=== PATIENT | female | born 1985 | race Caucasian/White ===

== ENCOUNTER 2024-02-02 20:04 | Emergency (ER) | payer MEDICAID ==
[~2024-02-02] VITALS: Ht 162.6 cm; Wt 105.0 kg
[2024-02-02 20:10] VITALS: TEMP 98.7; O2SAT 98
[2024-02-02] MEDS ORDERED: LIDO700A15 TP (23:32)
[2024-02-02] MEDS ORDERED: NAPR-1176 MT (23:32)
[2024-02-02 23:43] VITALS: BP 132/80; PULSE 82; RESP 17
[2024-02-02] MEDS: KETOROLAC 15MG/ML VIAL IM ONE (23:43)
== END 2024-02-02 23:45 | disposition home or self-care (01) ==
LOC: ER 20:04
DX: M25.551 Pain in right hip (principal); M25.552 Pain in left hip; M25.572 Pain in left ankle and joints of left foot; J45.909 Unspecified asthma, uncomplicated; E78.00 Pure hypercholesterolemia, unspecified; I10 Essential (primary) hypertension; V49.49XA Driver injured in collision with other motor vehicles in traffic accident, initial encounter; Y93.89 Activity, other specified; Y92.89 Other specified places as the place of occurrence of the external cause; Y99.8 Other external cause status
CPT/HCPCS: 99284; 71045; 73521; 73610; 96372; J1885

== ENCOUNTER 2024-02-23 15:27 | Emergency (ER) | payer MEDICAID ==
[~2024-02-23] VITALS: Ht 167.6 cm; Wt 112.5 kg
[~2024-02-23 15:27] MED LIST: LIDO700A15 TP; NAPR-1176 MT
[2024-02-23 16:29] LABS: BASOPHILS % 0.9 % (0.0-2.0); EOSINOPHILS % 1.6 % (0.0-5.0); HEMATOCRIT. 34.1 % (36.0-48.0); HEMOGLOBIN. 11.3 g/dL (12.0-16.0); LYMPHOCYTES % 24.9 % (20.0-50.0); MEAN CORPUSCULAR HEMOGLOBIN 28.9 pg (28.0-32.0); MEAN CORPUSCULAR HGB CONC 33.2 g/dL (31.0-37.0); MEAN CORPUSCULAR VOLUME 87.1 fL (81.0-99.0); MEAN PLATELET VOLUME 9.4 fl (7.4-10.4); MONOCYTES % 6.2 % (2.0-8.0); NEUTROPHILS % 66.4 % (40.0-76.0); PLATELET 259 x1000/uL (130-400); RED BLOOD CELL COUNT 3.92 mill/uL (4.2-5.4); WHITE BLOOD COUNT 8.2 x1000/uL (4.5-11.0)
[2024-02-23 16:34] VITALS: BP 122/65; PULSE 92; RESP 16; TEMP 98.4; O2SAT 100
[2024-02-23 16:48] LABS: ALANINE AMINOTRANSFERASE 63 IU/L (10-49); ALBUMIN 4.8 g/dL (3.2-4.8); ASPARTATE AMINOTRANSFERASE 68 IU/L (<34); BILIRUBIN TOTAL 0.3 mg/dL (0.1-1.0); CARBON DIOXIDE 22 mEq/L (21-32); CHLORIDE 108 mEq/L (98-107); CREATININE 0.8 mg/dL (0.6-1.0); GLUCOSE 119 mg/dL (70-105); POTASSIUM 4.1 mEq/L (3.5-5.1); PROTEIN TOTAL 8.2 g/dL (6.0-8.3); SODIUM 139 mEq/L (136-145); UREA NITROGEN BLOOD 13 mg/dL (9-23)
[2024-02-23 19:56] LABS: HCG SCREEN NEGATIVE
== END 2024-02-23 19:40 | disposition home or self-care (01) ==
LOC: ER 15:39
DX: R10.11 Right upper quadrant pain (principal); J45.909 Unspecified asthma, uncomplicated; E78.00 Pure hypercholesterolemia, unspecified; I10 Essential (primary) hypertension
CPT/HCPCS: 36415; 80053; 84703; 85025; 99283

== ENCOUNTER 2025-05-31 12:39 | Emergency (ER) | payer MEDICAID ==
[~2025-05-31] VITALS: Ht 165.1 cm; Wt 80.0 kg
[~2025-05-31 12:39] MED LIST changes: +LIDO-53 TP; -LIDO700A15 TP
[2025-05-31 12:42] VITALS: O2SAT 99
[2025-05-31] MEDS: ACETAMINOPHEN 325MG TABLET PO ONE (13:05)
[2025-05-31 13:26] LABS: BASOPHILS % 0.7 % (0.0-2.0); EOSINOPHILS % 1.4 % (0.0-5.0); HEMATOCRIT. 31.4 % (36.0-48.0); HEMOGLOBIN. 9.8 g/dL (12.0-16.0); LYMPHOCYTES % 18.7 % (20.0-50.0); MEAN PLATELET VOLUME 9.7 fl (7.4-10.4); MONOCYTES % 6.0 % (2.0-8.0); NEUTROPHILS % 73.2 % (40.0-76.0); PLATELET 168 x1000/uL (130-400); RED BLOOD CELL COUNT 4.03 mill/uL (4.2-5.4); RED CELL DISTRIBUTION WIDTH 19.0 % (11.6-14.6)
[2025-05-31 13:42] LABS: CREATININE 0.6 mg/dL (0.6-1.0); UREA NITROGEN BLOOD 15 mg/dL (9-23)
[2025-05-31 13:43] LABS: TROPONIN I HIGH SENSITIVITY < 4 ng/L (3.0-34)
[2025-05-31 13:52] LABS: INR 0.9
[2025-05-31] MEDS ORDERED: IBUP-2029 MT (14:41)
[2025-05-31 15:01] VITALS: BP 129/83; PULSE 67; RESP 17; TEMP 36.9; O2SAT 99
== END 2025-05-31 15:10 | disposition home or self-care (01) ==
LOC: ER 12:39
DX: J06.9 Acute upper respiratory infection, unspecified (principal); R07.89 Other chest pain; J45.909 Unspecified asthma, uncomplicated; E78.00 Pure hypercholesterolemia, unspecified; I10 Essential (primary) hypertension; Z20.822 Contact with and (suspected) exposure to COVID-19
CPT/HCPCS: 36415; 71045; 80048; 83880; 84484; 85025; 87426; 93005; 99285